=== PATIENT | female | born 1960 | race Caucasian/White ===

== ENCOUNTER 2020-08-02 16:08 | Emergency (ER) | payer MEDICARE, OTHER ==
[~2020-08-02] VITALS: Ht 165.1 cm; Wt 95.9 kg
[2020-08-02] MEDS ORDERED: BOOSTRIX/ADACEL VACCINE (DIPHTH/PERTUSS/ACELL/TETANUS) 0.5ML SYR IM ONE (16:45)
[2020-08-02] MEDS ORDERED: DOXYCYCLINE HYCLATE 100MG TABLET PO ONE (16:45)
[2020-08-02] MEDS ORDERED: OMEP-221 PO (16:59)
[2020-08-02] MEDS ORDERED: LISI-538 PO (16:59)
[2020-08-02] MEDS ORDERED: DOXY100C37 PO (17:10)
[2020-08-02 17:14] VITALS: BP 157/84
== END 2020-08-02 17:18 | disposition home or self-care (01) ==
LOC: M ED 16:08
DX: S51.851A Open bite of right forearm, initial encounter (principal); W55.01XA Bitten by cat, initial encounter; Y92.9 Unspecified place or not applicable; Y93.9 Activity, unspecified; Y99.9 Unspecified external cause status; E78.5 Hyperlipidemia, unspecified; Z88.0 Allergy status to penicillin; Z88.6 Allergy status to analgesic agent

== ENCOUNTER → 2022-01-23 | Outpatient (CLI) | payer OTHER ==
[~2022-01-23] MED LIST: DOXY-443 PO; LISI20TA33 PO; OMEP40CA5 PO
== END ==
LOC: M WHC 07:09
PROVIDERS: ATTEND Physician Assistant Medical
DX: Z12.31 Encounter for screening mammogram for malignant neoplasm of breast (principal)

== ENCOUNTER 2023-10-17 11:54 | Emergency (ER) | payer MEDICARE, OTHER ==
[~2023-10-17] VITALS: Ht 165.1 cm; Wt 93.3 kg
[2023-10-17] MEDS ORDERED: METH2.5T48 PO (12:13)
[2023-10-17] MEDS ORDERED: SULF500T2 PO (12:13)
[2023-10-17] MEDS ORDERED: CARV6.25 PO (12:13)
[2023-10-17] MEDS ORDERED: ATOR1TAB21 PO (12:13)
[2023-10-17] MEDS ORDERED: ALLE10TA62 PO (12:13)
[2023-10-17] MEDS ORDERED: XARE20TA PO (12:13)
[2023-10-17 16:00] VITALS: BP 186/89; TEMP 97.2; O2SAT 97
== END 2023-10-17 15:59 | disposition home or self-care (01) ==
LOC: M ED 11:54
DX: S52.572A Other intraarticular fracture of lower end of left radius, initial encounter for closed fracture (principal); W00.0XXA Fall on same level due to ice and snow, initial encounter; Y92.89 Other specified places as the place of occurrence of the external cause; Y93.K1 Activity, walking an animal; Y99.9 Unspecified external cause status; E78.5 Hyperlipidemia, unspecified; I48.91 Unspecified atrial fibrillation; Z88.0 Allergy status to penicillin; Z88.5 Allergy status to narcotic agent

== ENCOUNTER → 2023-10-29 | Outpatient (CLI) | payer MEDICARE, OTHER ==
[~2023-10-29] MED LIST changes: +ALLE10TA62 PO; +ATOR1TAB21 PO; +CARV6.25 PO; +METH2.5T48 PO; +SULF500T2 PO; +XARE20TA PO
== END ==
LOC: M SOG 08:04
PROVIDERS: ATTEND Physician Assistant
DX: S52.502A Unspecified fracture of the lower end of left radius, initial encounter for closed fracture (principal)

== ENCOUNTER → 2023-11-10 | Outpatient (CLI) | payer MEDICARE, OTHER | LOC: M SOG 07:57 | PROVIDERS: ATTEND Physician Assistant | DX: S52.502A Unspecified fracture of the lower end of left radius, initial encounter for closed fracture (principal); Y93.9 Activity, unspecified; Y92.9 Unspecified place or not applicable ==

== ENCOUNTER → 2023-11-19 | Outpatient (CLI) | payer MEDICARE, OTHER | LOC: M SOG 07:51 | PROVIDERS: ATTEND Physician Assistant | DX: S52.502A Unspecified fracture of the lower end of left radius, initial encounter for closed fracture (principal); Y93.9 Activity, unspecified; Y92.9 Unspecified place or not applicable ==

== ENCOUNTER 2023-12-12 11:56 | Emergency (ER) | payer MEDICARE, OTHER ==
[~2023-12-12] VITALS: Ht 162.6 cm; Wt 97.1 kg
[2023-12-12 11:57] VITALS: TEMP 97
[2023-12-12] MEDS ORDERED: ELIQ5TAB (12:18)
[2023-12-12] MEDS ORDERED: OMEP40CA5 (12:18)
[2023-12-12] MEDS ORDERED: HUMI40IN2 (12:18)
[2023-12-12] MEDS ORDERED: CARV25TA (12:18)
[2023-12-12 13:42] LABS: BASO % 0.7 % (0.0-1.0); EOS # 0.1 10^3/uL (0.0-0.5); EOS % 2.6 % (0.0-3.0); HEMATOCRIT 35.9 % (36.0-47.0); HEMOGLOBIN 12.9 g/dl (12.0-15.5); LYMPH # 1.6 10^3/uL (1.5-5.0); LYMPH % 34.9 % (24.0-44.0); MEAN CORPUSCULAR HEMOGLOBIN 35.2 pg (27.0-33.0); MEAN CORPUSCULAR HGB CONC 35.9 g/dl (32.0-36.5); MEAN CORPUSCULAR VOLUME 98.1 fl (80.0-96.0); MONO # 0.4 10^3/uL (0.0-0.8); MONO % 9.7 % (2.0-8.0); NEUTROPHILS # 2.4 10^3/uL (1.5-8.5); NEUTROPHILS % 51.9 % (36.0-66.0); PLATELET COUNT, AUTOMATED 191 10^3/uL (150-450); RED BLOOD COUNT 3.66 10^6/uL (4.00-5.40); WHITE BLOOD COUNT 4.6 10^3/uL (4.0-10.0)
[2023-12-12] MEDS ORDERED: ISOVUE-370 76% 100ML VIAL As Ordered ONE (13:51)
[2023-12-12 14:17] LABS: FREE T4 1.08 NG/DL (0.89-1.76); THYROID STIMULATING HORMONE 1.714 uIU/ML (0.55-4.78)
[2023-12-12 16:45] VITALS: BP 140/72; O2SAT 96
== END 2023-12-12 16:57 | disposition home or self-care (01) ==
LOC: M ED 11:56
DX: I10 Essential (primary) hypertension (principal); I48.91 Unspecified atrial fibrillation; Z86.73 Personal history of transient ischemic attack (TIA), and cerebral infarction without residual deficits; M25.78 Osteophyte, vertebrae; R90.82 White matter disease, unspecified; Z79.899 Other long term (current) drug therapy; Z88.0 Allergy status to penicillin; Z88.5 Allergy status to narcotic agent
CPT/HCPCS: 70450; 70496; 70498; 71045; 80047; 84439; 84443; 85025; 85730; 93005; 93041; 94760; 99285; Q9967

== ENCOUNTER → 2023-12-17 | Outpatient (CLI) | payer MEDICARE, OTHER ==
[~2023-12-17] MED LIST changes: +CARV25TA; +ELIQ5TAB; +HUMI40IN2; +OMEP40CA5
== END ==
LOC: M SOG 07:51
PROVIDERS: ATTEND Physician Assistant
DX: S52.502D Unspecified fracture of the lower end of left radius, subsequent encounter for closed fracture with routine healing (principal); Y93.9 Activity, unspecified; Y92.9 Unspecified place or not applicable

== ENCOUNTER → 2024-02-08 | Outpatient (CLI) | payer MEDICARE, OTHER ==
[~2024-02-08] MED LIST changes: +DOXY-323 PO; -DOXY-443 PO; +ISOVUE-370 76% 100ML VIAL ONE
== END ==
LOC: M PLAIMG 10:27
PROVIDERS: ATTEND Internal Medicine Cardiovascular Disease
DX: I69.30 Unspecified sequelae of cerebral infarction (principal)
CPT/HCPCS: 70460; 70491; Q9967

== ENCOUNTER → 2025-08-22 | Outpatient (CLI) | payer MEDICARE, OTHER ==
[~2025-08-22] MED LIST changes: +ALBU2.5V10 NEB; +ATOR80TA59 PO; +CARV12.5 PO; +CYAN-1 PO; +DICL100G10 TOP; -DOXY-323 PO; +DOXY-441 PO; +DULO1CAP6 PO; -ELIQ5TAB; +ELIQ5TAB PO; +ENTR1TAB PO; +FLUT1BLS3 INH; +FLUTISP; +FOLI1TAB11 PO; +GNP650TA8 PO; -HUMI40IN2; +HUMI40IN2 SC; -ISOVUE-370 76% 100ML VIAL ONE; +JARD1TAB PO; +MONT10TA97 PO; -OMEP40CA5; +ROSU40TA81 PO; +VITA1CAP25 PO
== END ==
LOC: M SOG 07:38
PROVIDERS: ATTEND Physician Assistant
DX: M25.551 Pain in right hip (principal)